=== PATIENT | female | born 1995 | race Caucasian/White ===

== ENCOUNTER 2018-10-14 10:45 | Emergency (ER) | payer SELFPAY ==
[~2018-10-14] VITALS: Ht 149.9 cm; Wt 38.6 kg
[~2018-10-14 10:45] MED LIST: NO HOME MEDS; ONDA4TAB59 PO
[2018-10-14 11:09] VITALS: BP 95/68
[2018-10-14] MEDS ORDERED: TETanus/Pertussis (Acell)/Diphther VAC/PF (Tdap-Adult) 0.5ml syringe IM ONE (12:25)
[2018-10-14] MEDS ORDERED: LIDOcaine 1% w/epiNEPHrine 1:200,000 30ml vial IM ONE (12:25)
== END 2018-10-14 13:08 | disposition home or self-care (01) ==
LOC: ER 10:46
DX: L02.413 Cutaneous abscess of right upper limb (principal); F12.90 Cannabis use, unspecified, uncomplicated; Z79.899 Other long term (current) drug therapy
CPT/HCPCS: 10060; 87070; 87077; 87186; 90471; 99283